=== PATIENT | female | born 1975 | race Caucasian/White ===

== ENCOUNTER 2018-03-13 11:34 | Emergency (ER) | payer SELFPAY ==
[~2018-03-13] VITALS: Ht 172.7 cm; Wt 90.0 kg
[2018-03-13 12:06] VITALS: BP 156/70; PULSE 62; RESP 18; TEMP 97.5; O2SAT 99
--- NOTE | 2018-03-13 12:22 | PD ---
HPI Chief Complaint: Cold / Flu Symptoms Time Seen by Provider: 12:12 Travel History International Travel<30 days: No Contact w/Intl Traveler<30days: No Traveled to known affect area: No History of Present Illness HPI 42-year-old female presents the emergency department with 4 day history of upper respiratory symptoms including sinus congestion, postnasal drip , cough, headache, fever and chills, and chest congestion. She denies wheezing. Cough is productive. She has decreased appetite but no nausea vomiting or diarrhea. She states her fever broke yesterday. She has been out of work since Saturday. She is requesting a return to work if I feel she has not contagious. She has no known drug allergies. PFSH Past Medical History Cancer: Yes (CERVICAL ) ?: Not Tubal Ligation: Yes Social History Alcohol Use: No Tobacco Use: Yes (PACK A DAY ) Substance Use: Yes (MARIJUANA) Allergies-Medications (Allergen,Severity, Reaction): Coded Allergies: No Known Allergies (Verified Allergy, Unknown, 03/13/18) Review of Systems Except as stated in HPI: all other systems reviewed are Neg General / Constitutional: Positive: Fever, Chills Eyes: No: Visual changes HENT: Positive: Headaches, Sore Throat, Rhinitis, Rhinorrhea, Congestion, No: Vertigo, Lightheadedness, Nosebleed, Neck Stiffness, Neck Pain, Dental Difficulties, Earache Cardiovascular: No: Chest Pain or Discomfort Respiratory: Positive: Cough, Shortness of Breath, No: Wheezing, Sneezing Gastrointestinal: Positive: Loss of Appetite, No: Nausea, Vomiting, Diarrhea, Abdominal Pain Genitourinary: No: Dysuria Musculoskeletal: No: Pain Skin: No Rash Neurologic: No: Weakness Psychiatric: No: Depression Endocrine: No: Polydipsia Hematologic/Lymphatic: No: Easy Bruising Physical Exam Narrative GENERAL: Patient appears ill but not septic SKIN: Warm and dry. Decreased pallor. Normal turgor HEAD: Atraumatic. Normocephalic. Patient has sinus tenderness both maxillary sinuses per EYES: Pupils equal and round. No scleral icterus. No injection or drainage. ENT: No nasal bleeding or discharge. Mucous membranes pink and moist. Posterior pharynx is cobblestoned and erythematous without significant tonsillitis or exudate. TMs are dull bilaterally without effusion or erythema. NECK: Trachea midline. Supple nontender CARDIOVASCULAR: Regular rate and rhythm. No murmurs gallops or rubs RESPIRATORY: No accessory muscle use. Course to auscultation. No wheezes, rales, or rhonchi. Breath sounds equal bilaterally. GASTROINTESTINAL: Abdomen soft, non-tender, nondistended. Hepatic and splenic margins not palpable. MUSCULOSKELETAL: Extremities without clubbing, cyanosis, or edema. No obvious deformities. NEUROLOGICAL: Awake and alert. No obvious cranial nerve deficits. Motor grossly within normal limits. Five out of 5 muscle strength in the arms and legs. Normal speech. PSYCHIATRIC: Appropriate mood and affect; insight and judgment normal. Data Data Last Documented VS Vital Signs Date Time Temp Pulse Resp B/P (MAP) Pulse Ox O2 Delivery O2 Flow Rate FiO2 03/13/18 12:06 97.5 62 18 156/70 (98) 99 MDM Medical Decision Making Medical Screen Exam Complete: Yes Emergency Medical Condition: Yes Differential Diagnosis Upper respiratory infection. Sinusitis. Postnasal drip. Cough. Bronchitis. Narrative Course Patient will be treated with amoxicillin 875 twice daily 10 days Patient is given Flonase nasal spray 2 sprays each nostril daily. Patient is to rest, push fluids, and take [id number] cough and cold medicines as needed. Work note is given with return next Saturday. Patient is encouraged to quit smoking. Diagnosis Primary Impression: Sinusitis Qualified Codes: J01.00 - Acute maxillary sinusitis, unspecified Patient Instructions: General Instructions Departure Forms: Work Release Enter return to work date: Mar 17, 2018 Additional Instructions: Patient will be treated with amoxicillin 875 twice daily 10 days Patient is given Flonase nasal spray 2 sprays each nostril daily. Patient is to rest, push fluids, and take [id number] cough and cold medicines as needed. Work note is given with return next Saturday. Patient is encouraged to quit smoking. Med/Other Pt SpecificInfo: Prescription(s) given Disposition: DISCHARGE HOME Condition: Stable Mickey Weller Mar 13, 2018 12:22
[2018-03-13] MEDS ORDERED: AMOX875T PO (12:23)
[2018-03-13] MEDS ORDERED: FLUT1SPR5 EACH NARE (12:23)
[2018-03-13] MEDS ORDERED: VENTAER INH (12:42)
== END 2018-03-13 12:49 | disposition home or self-care (01) ==
LOC: NEPK 11:34
DX: J01.00 Acute maxillary sinusitis, unspecified (principal); F12.90 Cannabis use, unspecified, uncomplicated; F17.200 Nicotine dependence, unspecified, uncomplicated
CPT/HCPCS: 99283